=== PATIENT | female | born 1980 | race Caucasian/White ===

== ENCOUNTER 2024-01-21 17:10 | Emergency (ER) | payer OTHER ==
[2024-01-21 17:25] VITALS: BP 115/79; PULSE 77; RESP 18; TEMP 98; BMI 22.6
[2024-01-21] MEDS ORDERED: DOXYCYCLINE HYCLATE 100 MG CAPSULE PO ONE (19:27)
[2024-01-21] MEDS ORDERED: WATER FOR INJ,STERILE 10 ML ONE (19:27)
[2024-01-21 19:39] LABS: PH,URINE 5.5 (5.0-8.0); URINE APPEARANCE CLEAR; URINE BILIRUBIN NEGATIVE (NEGATIVE); URINE COLOR YELLOW; URINE GLUCOSE (UA) NEGATIVE (NEGATIVE); URINE KETONE NEGATIVE (NEGATIVE); URINE LEUK ESTERASE NEGATIVE (NEGATIVE); URINE NITRITE NEGATIVE (NEGATIVE); URINE PROTEIN NEGATIVE (NEGATIVE); URINE UROBILINOGEN 0.2 mg/dL (0.2-1.0)
[2024-01-21 19:40] LABS: HCG,QUALITATIVE URINE Negative
[2024-01-21] MEDS: DOXYCYCLINE HYCLATE 100 MG CAPSULE PO ONE (19:46)
[2024-01-21] MEDS ORDERED: FLUCONAZOLE 150 MG TABLET PO ONE (21:38)
[2024-01-21] MEDS: FLUCONAZOLE 150 MG TABLET PO ONE (21:59)
== END 2024-01-21 21:59 | disposition home or self-care (01) ==
LOC: JER 17:10
DX: N94.10 Unspecified dyspareunia (principal)
CPT/HCPCS: 76830-TC; 81003; 84703; 87086; 99284-25